=== PATIENT | female | born 1955 | race Caucasian/White ===

== ENCOUNTER → 2018-05-08 | Outpatient (CLI) | payer MEDICARE ==
[~2018-05-08] MED LIST: ALPR0.5T6 PO; ASPI-496 PO; CALC300T5 PO; CHOL100012 PO; LEVO15TA6 PO; LEVO75TA5 PO; MULT-257 PO; OMEG1CAP34 PO; SERT100T PO; UBID1CAP4 PO
== END | disposition home or self-care (01) ==
LOC: CFH 14:32
PROVIDERS: ATTEND Family Medicine
DX: Z12.31 Encounter for screening mammogram for malignant neoplasm of breast (principal)
CPT/HCPCS: 77067

== ENCOUNTER 2018-10-15 13:55 | Emergency (ER) | payer MEDICARE ==
[~2018-10-15] VITALS: Ht 165.1 cm; Wt 74.8 kg
[2018-10-15 14:02] VITALS: BP 153/103
[2018-10-15] MEDS ORDERED: LEVO88TA4 PO (14:50)
== END 2018-10-15 14:57 | disposition home or self-care (01) ==
LOC: ED 14:45
DX: H93.91 Unspecified disorder of right ear (principal)
CPT/HCPCS: 99281

== ENCOUNTER 2021-06-02 07:33 | Outpatient (CLI) | payer MEDICARE ==
[~2021-06-02 07:33] MED LIST changes: -ALPR0.5T6 PO; +ALPR0.5T93 PO; +LEVO88TA4 PO
== END 2021-06-02 23:59 | disposition home or self-care (01) ==
LOC: CFH 07:33
PROVIDERS: ATTEND Family Medicine
DX: Z12.31 Encounter for screening mammogram for malignant neoplasm of breast (principal)
CPT/HCPCS: 77063; 77067